=== PATIENT | female | born 1955 | race Caucasian/White ===

== ENCOUNTER → 2017-06-15 | Outpatient (REF) | payer OTHER ==
[~2017-06-15] MED LIST: ALEV220T26 PO; BABY81CH PO; IBUP200T2 PO; LEVA31IN INH; MULTCAP PO; NAPR375T2 PO; SOMA350T PO; TRAM37.5 PO; [UNRECOGNIZED DRUG - OTHER] PO
== END ==
LOC: M LAB REF 12:53
PROVIDERS: ATTEND Obstetrics & Gynecology
DX: N39.46 Mixed incontinence (principal)

== ENCOUNTER → 2017-08-24 | Outpatient (CLI) | payer OTHER ==
--- NOTE | 2017-08-25 08:42 | REP ---
MAXILLOFACIAL CT WITHOUT CONTRAST: HISTORY: Allergic rhinitis. The sinuses are clear. The ostiomeatal units are patent. The middle and inferior nasal turbinates are partially paradoxical. There is mild deviation of the nasal septum to the left. The cribriform plate, medial suero of the orbits and optic canals are intact. The carotid canals form a segment of the posterolateral suero of the sphenoid sinus. Calcification is present in the left tonsil. This is secondary to previous inflammatory disease. IMPRESSION: There is no acute or chronic sinusitis. Signed by Stephen Luo MD 08/25/2017 09:09 A
== END ==
LOC: M RAD 17:47
PROVIDERS: ATTEND Otolaryngology
DX: J30.9 Allergic rhinitis, unspecified (principal)

== ENCOUNTER → 2017-11-12 | Outpatient (REF) | payer OTHER ==
[2017-11-12 17:42] LABS: RHEUMATOID FACTOR QUANT < 10.0 IU/ML (0-15.0)
[2017-11-12 17:42] LABS: C REACTIVE PROTEIN QUANTITATIV < 0.30 MG/DL (0.00-0.30)
[2017-11-16 00:06] LABS: ANTINUCLEAR ANTIBODIES DIRECT Negative (Negative); Lyme Disease IgG/IgM Antibodie <0.91 ISR (0.00-0.90); Lyme Disease IgM Ab Quantitati <0.80 index (0.00-0.79)
== END ==
LOC: M LAB REF 16:28
DX: R60.0 Localized edema (principal); L30.9 Dermatitis, unspecified; R42 Dizziness and giddiness

== ENCOUNTER → 2017-12-31 | Outpatient (CLI) | payer OTHER ==
[~2017-12-31] MED LIST changes: -ALEV220T26 PO; -BABY81CH PO; -IBUP200T2 PO; -LEVA31IN INH; -MULTCAP PO; -NAPR375T2 PO; +PROHANCE 279.3MG/ML 15ML VIAL (A9576) As Ordered; +PROHANCE 279.3MG/ML 5ML VIAL (A9576) As Ordered; -SOMA350T PO; -TRAM37.5 PO; -[UNRECOGNIZED DRUG - OTHER] PO
== END ==
LOC: M RAD 08:57
DX: R42 Dizziness and giddiness (principal); I67.82 Cerebral ischemia

== ENCOUNTER 2018-08-25 09:10 | Day surgery (SDC) | payer OTHER ==
[~2018-08-25 09:10] MED LIST changes: +LIDOCAINE 1% MDV 20ML VIAL SQ; -PROHANCE 279.3MG/ML 15ML VIAL (A9576) As Ordered; -PROHANCE 279.3MG/ML 5ML VIAL (A9576) As Ordered
[2018-08-25] MEDS: LR 1,000 ML IV ×3 (10:20→20:54)
[2018-08-25] MEDS ORDERED: ONDANSETRON 4MG/2ML VIAL (J2405) As Ordered (11:28)
[2018-08-25] MEDS ORDERED: LIDOCAINE 2% INJ 100 MG/5 ML SDV (FOR ANES.) As Ordered (11:28)
[2018-08-25] MEDS ORDERED: METOCLOPRAMIDE INJ 10MG/2ML VIAL (J2765) As Ordered (11:28)
[2018-08-25] MEDS ORDERED: PROPOFOL 200 MG/20 ML VIAL As Ordered (11:28)
[2018-08-25] MEDS ORDERED: ROCURONIUM BROMIDE 50 MG/5 ML VIAL As Ordered (11:28)
[2018-08-25] MEDS ORDERED: MIDAZOLAM INJ 2 MG/2 ML VIAL (J2250) As Ordered (11:30)
[2018-08-25] MEDS ORDERED: fentaNYL 100 MCG/2 ML INJECTION (J3010) As Ordered (11:30)
[2018-08-25] MEDS ORDERED: HYDROmorphone HCL 2 MG/ML 1ML VIAL (J1170) As Ordered (13:08)
[2018-08-25] MEDS: ONDANSETRON 4MG/2ML VIAL (J2405) IV ×2 (14:20→22:42)
[2018-08-25] MEDS: MEPERIDINE INJ 25 MG/ML VIAL (J2175) IV ×2 (14:20→14:25)
[2018-08-25] MEDS: VASOPRESSIN INJ 20 UNITS/ML VIAL As Ordered (14:28)
[2018-08-25] MEDS ORDERED: MORPHINE 1MG/ML IN 0.9% NACL 100ML IV BAG As Ordered (14:45)
[2018-08-25] MEDS ORDERED: METOCLOPRAMIDE INJ 10MG/2ML VIAL (J2765) IV (15:00)
[2018-08-25] MEDS ORDERED: fentaNYL 100 MCG/2 ML INJECTION (J3010) IV (15:00)
[2018-08-25] MEDS ORDERED: PERCOCET 5MG/325MG TAB PO (15:00)
[2018-08-25] MEDS ORDERED: MORPHINE 1MG/ML IN 0.9% NACL 100ML IV BAG IV (15:15)
[2018-08-25] MEDS ORDERED: NORCO, ANEXSIA 5/325MG TABLET (HYDROcodone/ACETAMINOPHEN) PO (15:15)
[2018-08-25] MEDS ORDERED: diphenhydrAMINE INJ 50MG/ML VIAL (J1200) IV (15:15)
[2018-08-25] MEDS ORDERED: NALOXONE INJ 0.4 MG/1 ML VIAL (J2310) IV (15:15)
[2018-08-25] MEDS ORDERED: ALBUTEROL 90 MCG/ACT 8GM HFA INHALER INH (15:15)
[2018-08-25] MEDS ORDERED: EPIDURAL/PCA KEYS XX (15:15)
[2018-08-25] MEDS ORDERED: NALBUPHINE HCL 10 MG/ML AMP (J2300) IV (15:15)
[2018-08-26] MEDS: IBUPROFEN 600 MG TAB PO (04:33)
[2018-08-26] MEDS: LR 1,000 ML IV (04:34)
[2018-08-26] MEDS ORDERED: NORCO, ANEXSIA 5/325MG TABLET (HYDROcodone/ACETAMINOPHEN) PO (06:00)
[2018-08-26 07:29] LABS: HEMATOCRIT 32.6 % (36.0-47.0); HEMOGLOBIN 10.7 g/dl (12.0-15.5); MEAN CORPUSCULAR HEMOGLOBIN 30.4 pg (27.0-33.0); MEAN CORPUSCULAR HGB CONC 32.8 g/dl (32.0-36.5); MEAN CORPUSCULAR VOLUME 92.6 fl (80.0-96.0); PLATELET COUNT, AUTOMATED 193 10^3/uL (150-450); RED BLOOD COUNT 3.52 10^6/uL (4.00-5.40); RED CELL DISTRIBUTION WIDTH 14.9 % (11.5-14.5); WHITE BLOOD COUNT 9.1 10^3/uL (4.0-10.0)
[2018-08-26] MEDS ORDERED: LORATADINE 10 MG TAB PO (09:00)
[2018-08-26] MEDS ORDERED: FLUTICASONE PROP 0.05% NASAL SPRAY 16 GM (FLONASE) NARES (09:00)
[2018-08-26] MEDS: ADVAIR HFA 45/21MCG INHALER INH (09:02)
== END 2018-08-26 09:50 | disposition home or self-care (01) ==
LOC: M SDC 09:10 → M PED 16:00
DX: N81.9 Female genital prolapse, unspecified (principal); N39.3 Stress incontinence (female) (male); N36.41 Hypermobility of urethra; E78.5 Hyperlipidemia, unspecified; E04.1 Nontoxic single thyroid nodule; R73.9 Hyperglycemia, unspecified; K64.8 Other hemorrhoids; M17.0 Bilateral primary osteoarthritis of knee; J45.909 Unspecified asthma, uncomplicated; T88.59XD Other complications of anesthesia, subsequent encounter; J30.89 Other allergic rhinitis; M54.5 Low back pain; E73.9 Lactose intolerance, unspecified; Z88.8 Allergy status to other drugs, medicaments and biological substances; Z98.51 Tubal ligation status; Z87.891 Personal history of nicotine dependence
CPT/HCPCS: 57288

== ENCOUNTER → 2018-10-31 | Outpatient (CLI) | payer OTHER ==
[~2018-10-31] MED LIST changes: +ADV100INH PO; +ALEV220T26 PO; +BABY81CH PO; +CLAR10CA3 PO; +FLUTISP; +GINK500C3 PO; +IBUP200T2 PO; +LEVA31IN INH; -LIDOCAINE 1% MDV 20ML VIAL SQ; +MOTR200T44 PO; +MULTCAP PO; +NAPR375T2 PO; +SOMA350T PO; +TRAM37.5 PO; +VENTAER INH; +[UNRECOGNIZED DRUG - OTHER] PO
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
== END ==
LOC: M PAIN 09:30
PROVIDERS: ATTEND Anesthesiology
DX: M79.18 Myalgia, other site (principal); M54.6 Pain in thoracic spine; M25.512 Pain in left shoulder; J45.909 Unspecified asthma, uncomplicated; E78.00 Pure hypercholesterolemia, unspecified; M17.12 Unilateral primary osteoarthritis, left knee; Z79.899 Other long term (current) drug therapy; Z88.8 Allergy status to other drugs, medicaments and biological substances; Z87.820 Personal history of traumatic brain injury

== ENCOUNTER 2019-02-24 06:34 | Day surgery (SDC) | payer BC ==
[~2019-02-24] VITALS: Ht 157.5 cm; Wt 73.5 kg
[~2019-02-24 06:34] MED LIST changes: +LEVA0.3131 INH; -LEVA31IN INH; +PREPCRE PR
[2019-02-24] MEDS ORDERED: PROPOFOL 200 MG/20 ML VIAL As Ordered ONE (07:13)
[2019-02-24] MEDS ORDERED: LIDOCAINE 2% INJ 100 MG/5 ML SDV (FOR ANES.) As Ordered ONE (07:13)
[2019-02-24] MEDS ORDERED: NS 1,000 ML IV ONE (07:15)
--- NOTE | 2019-02-24 08:07 | ROOR ---
Patient Name: Lyndsey Starkey Procedure Date: 02/24/2019 7:28 AM Date of : 1955 Age: 63 Room: [facility] Gender: Female Note Status: Finalized Procedure: Total Colonoscopy to Cecum + Cold Snare Polypectomy + Hemoclips Indications: Screening for colorectal malignant neoplasm Providers: Tawanda Santiago MD Referring MD: Lisa ALVAREZ MD Requesting Provider: Medicines: Monitored Anesthesia Care Complications: No immediate complications. Procedure: Pre-Anesthesia Assessment: - The heart rate, respiratory rate, oxygen saturations, blood pressure, adequacy of pulmonary ventilation, and response to care were monitored throughout the procedure. The Colonoscope was introduced through the anus and advanced to the cecum, identified by appendiceal orifice and ileocecal valve. The colonoscopy was performed without difficulty. The patient tolerated the procedure well. The quality of the bowel preparation was excellent. Findings: The perianal and digital rectal examinations were normal. Non-bleeding internal hemorrhoids were found during retroflexion. The hemorrhoids were medium-sized and Grade I (internal hemorrhoids that do not prolapse). Biopsies were taken with a cold forceps for histology. A medium polyp was found at 60 cm proximal to the anus. The polyp was sessile. The polyp was removed with a cold snare. Resection and retrieval were complete. A large polyp was found in the cecum. The polyp was sessile. The polyp was removed with a cold snare. Resection and retrieval were complete. To prevent bleeding after the polypectomy, three hemostatic clips were successfully placed (MR conditional). There was no bleeding at the end of the procedure. The exam was otherwise without abnormality on direct and retroflexion views. Impression: - Non-bleeding internal hemorrhoids. Biopsied. - One medium polyp at 60 cm proximal to the anus, removed with a cold snare. Resected and retrieved. - One large polyp in the cecum, removed with a cold snare. Resected and retrieved. Clips (MR conditional) were placed. - The examination was otherwise normal on direct and retroflexion views. - The exam was otherwise normal to the cecum. Recommendation: - Patient has a contact number available for emergencies. The signs and symptoms of potential delayed complications were discussed with the patient. Return to normal activities tomorrow. Written discharge instructions were provided to the patient. - High fiber diet. - Discharge patient to home. - Continue present medications. - Await pathology results. - Telephone GI clinic for pathology results in 1 week. - Repeat colonoscopy for surveillance based on pathology results. - Refer to a surgeon at appointment to be scheduled. - The findings and recommendations were discussed with the patient's family. Tawanda Santiago MD Tawanda Santiago MD 02/24/2019 8:07:18 AM Electronically signed by Tawanda Santiago MD Number of Addenda: 0 Note Initiated On: 02/24/2019 7:28 AM Estimated Blood Loss: Estimated blood loss: none.
== END 2019-02-24 08:46 | disposition home or self-care (01) ==
LOC: M OPP 06:34
PROVIDERS: ATTEND Internal Medicine Gastroenterology
DX: D12.6 Benign neoplasm of colon, unspecified (principal); K63.5 Polyp of colon; K64.0 First degree hemorrhoids; Z12.11 Encounter for screening for malignant neoplasm of colon

== ENCOUNTER → 2019-08-04 | Outpatient (REF) | payer BC | LOC: M LAB REF 11:11 | PROVIDERS: ATTEND Physician Assistant | DX: R30.0 Dysuria (principal) ==

== ENCOUNTER → 2020-05-16 | Outpatient (REF) | payer BC ==
[~2020-05-16] MED LIST changes: +PHEN26CR PR; -PREPCRE PR
[2020-05-16 17:49] LABS: RHEUMATOID FACTOR QUANT < 10.0 IU/ML (<15.0)
[2020-05-17 11:55] LABS: FOLATE 16.1 NG/ML; VITAMIN B12 LEVEL 254 PG/ML
[2020-05-21 18:11] LABS: ANTINUCLEAR ANTIBODIES DIRECT Negative (Negative); Lyme Disease IgG/IgM Antibodie <0.91 ISR (0.00-0.90); Lyme Disease IgM Ab Quantitati <0.80 index (0.00-0.79); VITAMIN B1 LEVEL WHOLE BLOOD 98.8 nmol/L (66.5-200.0); VITAMIN B6,PYRIDOXAL PHOSPHATE 9.3 ug/L (2.0-32.8); VITAMIN E(ALPHA TOCOPHEROL) 14.1 mg/L (9.0-29.0)
== END ==
LOC: M LAB REF 16:40
PROVIDERS: ATTEND Internal Medicine
DX: R20.0 Anesthesia of skin (principal); R26.81 Unsteadiness on feet

== ENCOUNTER → 2020-12-20 | Outpatient (REF) | payer BC ==
[2020-12-20 16:52] LABS: APPEARANCE, URINE CLEAR (CLEAR); BACTERIA, URINE AUTO NEGATIVE (NEGATIVE); BILIRUBIN, URINE AUTO NEGATIVE (NEGATIVE); BLOOD, URINE BLOOD NEGATIVE (NEGATIVE); COLOR, URINE YELLOW (YELLOW); GLUCOSE, URINE (UA) AUTO NEGATIVE (NEGATIVE); KETONE, URINE AUTO NEGATIVE (NEGATIVE); LEUKOCYTE ESTERASE, URINE AUTO NEGATIVE (NEGATIVE); NITRITE, URINE AUTO NEGATIVE (NEGATIVE); PROTEIN, URINE AUTO NEGATIVE (NEGATIVE); RBC, URINE AUTO 0 /HPF (0-3); SQUAMOUS EPITHELIAL CELL UR AU 0 /HPF (0-6); UROBILINOGEN, URINE AUTO 0.2 mg/dL (0.0-2.0); WBC, URINE AUTO 0 /HPF (0-3)
== END ==
LOC: M LAB REF 16:22
PROVIDERS: ATTEND Obstetrics & Gynecology
DX: N39.0 Urinary tract infection, site not specified (principal)

== ENCOUNTER → 2022-01-07 | Outpatient (CLI) | payer BC, OTHER ==
[~2022-01-07] MED LIST changes: +ALBU8.5H INH
== END ==
LOC: M LABSMTC 11:11
PROVIDERS: ATTEND Anesthesiology
DX: Z01.812 Encounter for preprocedural laboratory examination (principal); Z20.822 Contact with and (suspected) exposure to COVID-19

== ENCOUNTER 2022-01-12 08:41 | Day surgery (SDC) | payer OTHER ==
[~2022-01-12] VITALS: Ht 157.5 cm; Wt 75.3 kg
[~2022-01-12 08:41] MED LIST changes: +LR 1,000 ML IV ONE; +SCOPOLAMINE 1MG TRANSDERMAL PATCH TOP ONE
[2022-01-12] MEDS ORDERED: ROCURONIUM BROMIDE 50 MG/5 ML VIAL As Ordered ONE (10:36)
[2022-01-12] MEDS ORDERED: fentaNYL 100 MCG/2 ML INJECTION As Ordered ONE (10:36)
[2022-01-12] MEDS ORDERED: propofoL 200 MG/20 ML VIAL As Ordered ONE (10:36)
[2022-01-12] MEDS ORDERED: LIDOCAINE 2% 100MG/5ML SDV (FOR ANES.) As Ordered ONE (10:36)
[2022-01-12] MEDS ORDERED: MIDAZOLAM INJ 2MG/2ML VIAL (J2250 PER 1MG) As Ordered ONE (10:36)
[2022-01-12] MEDS ORDERED: dexameTHASONE 4 MG/ML 1ML VIAL (J1100 PER 1MG) As Ordered ONE (10:37)
[2022-01-12] MEDS ORDERED: ONDANSETRON 4MG/2ML VIAL As Ordered ONE (10:37)
[2022-01-12] MEDS ORDERED: OXYMETAZOLINE 0.05% NASAL SPRAY (AFRIN) As Ordered ONE (11:24)
[2022-01-12] MEDS ORDERED: ACETAMINOPHEN 1000MG 100ML IV BTL (OFIRMEV) (J0131 PER 10MG) As Ordered ONE (11:24)
[2022-01-12] MEDS ORDERED: LIDOCAINE W/EPINEPHRINE 1% 20ML VIAL As Ordered ONE (11:25)
[2022-01-12] MEDS ORDERED: COCAINE 4% 4ML NASAL SOLUTION BTL As Ordered ONE (11:25)
[2022-01-12] MEDS ORDERED: SUGAMMADEX SODIUM 500 MG/5 ML VIAL (BRIDION) As Ordered ONE (12:29)
[2022-01-12] MEDS ORDERED: oxyCODONE 5MG TAB PO PRN (13:05)
[2022-01-12] MEDS ORDERED: LR 1,000 ML IV SCH ×2 (13:05)
[2022-01-12] MEDS ORDERED: MORPHINE 10 MG/ML 1ML VIAL IV PRN (13:05)
[2022-01-12] MEDS ORDERED: ONDANSETRON 4MG/2ML VIAL IV PRN ×2 (13:05→13:10)
[2022-01-12] MEDS ORDERED: ANEXSIA, NORCO 7.5MG/325MG TABLET(HYDROCODONE/APAP) PO PRN (13:05)
[2022-01-12] MEDS ORDERED: fentaNYL 100 MCG/2 ML INJECTION IV PRN (13:05)
[2022-01-12] MEDS ORDERED: KETOROLAC 60MG 2ML VIAL As Ordered ONE (14:06)
[2022-01-12 15:05] VITALS: BP 122/67
== END 2022-01-12 15:10 | disposition home or self-care (01) ==
LOC: M SDC 08:41
PROVIDERS: ATTEND Otolaryngology
DX: J34.2 Deviated nasal septum (principal); Z88.8 Allergy status to other drugs, medicaments and biological substances; Z79.899 Other long term (current) drug therapy; Z98.51 Tubal ligation status; Z87.891 Personal history of nicotine dependence; M19.91 Primary osteoarthritis, unspecified site
CPT/HCPCS: 30520; 88300; C9046; J0131; J1100; J2250; J2405; J3010

== ENCOUNTER → 2022-06-16 | Outpatient (CLI) | payer BC, MEDICARE ==
[~2022-06-16] MED LIST changes: -LR 1,000 ML IV ONE; -SCOPOLAMINE 1MG TRANSDERMAL PATCH TOP ONE
== END ==
LOC: M PLAIMG 15:46
PROVIDERS: ATTEND Nurse Practitioner Adult Health
DX: J45.30 Mild persistent asthma, uncomplicated (principal)

== ENCOUNTER → 2023-01-18 | Outpatient (REF) | payer MEDICARE ==
[~2023-01-18] MED LIST changes: +FLUT50SP17; -FLUTISP
[2023-01-18 17:55] LABS: FOLATE > 24.0 NG/ML (>5.4); VITAMIN B12 LEVEL 214 PG/ML (211-911)
== END ==
LOC: M LAB REF 16:34
PROVIDERS: ATTEND Internal Medicine
DX: R53.83 Other fatigue (principal); R20.0 Anesthesia of skin

== ENCOUNTER → 2023-01-19 | Outpatient (CLI) | payer MEDICARE | LOC: M WUC 14:53 | PROVIDERS: ATTEND Internal Medicine | DX: R53.83 Other fatigue (principal); R05.9 Cough, unspecified ==

== ENCOUNTER 2023-05-24 07:41 | Day surgery (SDC) | payer MEDICARE ==
[~2023-05-24] VITALS: Ht 157.5 cm; Wt 72.4 kg
[~2023-05-24 07:41] MED LIST changes: +CALC500C16 PO; +EQL50TAB2 PO; +MAGN400C2 PO; +MELA5TAB47 PO; +NS 1,000 ML IV ONE; +ROSU5TAB5 PO; +THERTAB52 PO; +TREL1AER; +VITA100093 PO; +fentaNYL 100 MCG/2 ML INJECTION As Ordered ONE; +propofoL 200 MG/20 ML VIAL As Ordered ONE
[2023-05-24] MEDS ORDERED: propofoL 200 MG/20 ML VIAL As Ordered ONE (09:28)
[2023-05-24] MEDS ORDERED: ONDANSETRON 4MG 2ML VIAL As Ordered ONE (09:37)
[2023-05-24 10:08] VITALS: BP 106/51; O2SAT 68
== END 2023-05-24 10:11 | disposition home or self-care (01) ==
LOC: M OPP 07:41
PROVIDERS: ATTEND Internal Medicine Gastroenterology
DX: Z86.010 Personal history of colon polyps (principal); K64.0 First degree hemorrhoids; K22.89 Other specified disease of esophagus; Z79.02 Long term (current) use of antithrombotics/antiplatelets; Z79.1 Long term (current) use of non-steroidal anti-inflammatories (NSAID); Z79.51 Long term (current) use of inhaled steroids; Z79.52 Long term (current) use of systemic steroids; Z88.8 Allergy status to other drugs, medicaments and biological substances
CPT/HCPCS: 43239; 88305; G0105; J2405; J3010